=== PATIENT | male | born 1950 | race Caucasian/White ===

== ENCOUNTER 2022-10-20 09:08 | Emergency (ER) | payer MEDICARE, BC ==
--- NOTE | 2022-10-20 09:28 | ED Physician Documentation ---
PD HPI HEENT - Stated complaint Stated Complaint: DIZZY - Chief complaint Chief Complaint: Neuro - History obtained from History obtained from: Patient, Family - History of Present Illness Timing - onset: How many days ago (6) Timing - duration: Days (6) Timing - details: Abrupt onset, Still present, Intermittant (triggered by head/position movement. Improves with lying still. No other symtpoms. Onset when shoveling snow.) Location: Right ear (feeling of decreased hearing/fullness right ear.) Improves: Other (lying still) Worsens: Position (movement of head or leaning over/rolling over.) Associated symptoms: No: Fever, Congestion, Headache, Cough Similar symptoms before: No diagnosis (intermittent vertigo in past; not this severe nor persistent) Review of Systems Constitutional: denies: Fever, Chills Eyes: denies: Loss of vision Ears: reports: Tinnitus/ringing (chronic right ear more.). 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 ), TIA Endocrine/Autoimmune: None - Present Medications Home Medications: Ambulatory Orders Medication Instructions Recorded Confirmed Aspirin EC [Ecotrin] 81 mg PO DAILY 10/20/22 10/20/22 Atorvastatin Calcium [Lipitor] 80 mg PO HS 10/20/22 10/20/22 Cetirizine [ZyrTEC] 10 mg PO DAILY #15 tablet 10/20/22 Fluticasone/Salmeterol [Advair 1 each IH BID 10/20/22 10/20/22 250-50 Diskus] Lansoprazole [Prevacid] 30 mg PO DAILY 10/20/22 10/20/22 Meclizine HCl [Motion Sickness] 25 mg PO Q6H PRN #30 tablet 10/20/22 Montelukast [Singulair] 10 mg PO QPM 10/20/22 10/20/22 Tamsulosin [Flomax] 0.4 mg PO DAILY 10/20/22 10/20/22 buPROPion [Wellbutrin Sr] 0 mg PO BID 10/20/22 10/20/22 - Allergies Allergies/Adverse Reactions: Allergies Allergy/AdvReac Type Severity Reaction Status Date / Time cephalexin [From Keflex] Allergy Rash Verified 10/20/22 09:23 Penicillins Allergy Rash Verified 10/20/22 09:23 PD ED PE NORMAL - Vitals Vital signs reviewed: Yes - General General: Alert and oriented X 3, No acute distress, Well developed/nourished - HEENT HEENT: PERRL, EOMI (with nystagmus noted mildly to right; no vertical nystagmus. 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, No motor deficit, No sensory deficit, Normal speech, Other Results - Vitals Vitals: Vital Signs - 24 hr 10/20/22 10/20/22 09:16 10:33 Temperature 36.0 C L Heart Rate 66 60 Respiratory 16 12 Rate Blood Pressure 206/85 H 168/67 H O2 Saturation 100 100 Oxygen O2 Source Room air - Labs Labs: Laboratory Tests 10/20/22 10/20/22 10/20/22 10:00 10:00 10:00 WBC 7.6 RBC 4.49 L Hgb 13.1 L Hct 41.3 L MCV 92.0 MCH 29.2 MCHC 31.7 L RDW 12.9 Plt Count 316 MPV 8.6 Neut # (Auto) 4.5 Lymph # (Auto) 1.7 [place] # (Auto) 0.7 Eos # (Auto) 0.5 Baso # (Auto) 0.1 Absolute Nucleated RBC 0.00 Nucleated RBC % 0.0 ESR 66 H Sodium 142 Potassium 4.4 Chloride 109 Carbon Dioxide 26 Anion Gap 7.0 BUN 8 Creatinine 0.8 Estimated GFR (MDRD) 95 Glucose 107 H Calcium 8.7 Magnesium 2.3 Total Bilirubin 0.3 AST 18 ALT 15 Alkaline Phosphatase 45 Total Protein 7.8 Albumin 3.7 Globulin 4.1 Albumin/Globulin Ratio 0.9 L Lipase 26 - Rads (name of study) head CT Radiology: Prelim report reviewed (no acute process), See rad report PD Medical Decision Making - ED course Complexity details: reviewed results (No obvious acute abnormalities to my evaluation. Pending radiology report.), re-evaluated patient (feeling improved after valium/meclizine. Able to move/turn head and sit up with just minimal vertigo.), considered differential (Symptom onset while bending over and shoveling with pattern of triggered by movement and better with rest without other symptoms would be suggestive of peripheral vertigo. Can check basic electrolytes. He has had prior cerebral artery bypass so can check a CT to ensure no signs of acute changes.), d/w patient Departure - Departure Disposition: Home, Self Care Clinical Impression: Peripheral vertigo Qualifiers: Laterality: unspecified laterality Qualified Code(s): H81.399 - Other peripheral vertigo, unspecified ear Condition: Stable Record reviewed to determine appropriate education?: Yes Instructions: ED BPV Vertigo Prescriptions: Meclizine HCl [Motion Sickness] 25 mg PO Q6H PRN #30 tablet PRN Reason: Vertigo Cetirizine [ZyrTEC] 10 mg PO DAILY #15 tablet Comments: This sounds like peripheral vertigo involving the inner ear. Sometimes this is just loose debris floating around. Try to avoid quick movements and such. However the persistence of it would be more suggestive of fluid pressure or some inflammation. This would also account for some of the feeling of fullness or decreased hearing. I would suggest cetirizine antihistamine daily for the next week or 2 without consideration. To that add meclizine every 6 hours if needed for vertigo. Recheck with your primary care if not improving well over the next several days and resolved by 4 to 5 days. Return if worsening or new symptoms develop. I sent your prescriptions to your preferred pharmacy. Discharge Date/Time: 10/20/22 11:39
[2022-10-20] MEDS ORDERED: MECLIZINE 12.5 MG TABLET PO STA (09:51)
[2022-10-20] MEDS ORDERED: diazePAM INJ 5 MG/ML SYRINGE IVP STA (09:51)
[2022-10-20 10:08] LABS: BASOPHILS # (AUTO) 0.1 10^3/uL (0.0-0.1); BASOPHILS % (AUTO) 1.2 %; EOSINOPHILS # (AUTO) 0.5 10^3/uL (0.0-0.7); EOSINOPHILS % (AUTO) 6.3 %; HCT - HEMATOCRIT 41.3 % (42.0-52.0); HGB - HEMOGLOBIN 13.1 g/dL (14.0-18.0); LYMPHOCYTES # (AUTO) 1.7 10^3/uL (1.5-3.5); LYMPHOCYTES % (AUTO) 22.9 %; MEAN CORPUSCULAR HEMOGLOBIN 29.2 pg (27.0-31.0); MEAN CORPUSCULAR HGB CONC 31.7 g/dL (32.0-36.0); MEAN PLATELET VOLUME 8.6 fL (7.4-11.4); MONOCYTES # (AUTO) 0.7 10^3/uL (0.0-1.0); MONOCYTES % (AUTO) 9.7 %; NEUTROPHILS # (AUTO) 4.5 10^3/uL (1.5-6.6); NEUTROPHILS % (AUTO) 59.5 %; PLT - PLATELET COUNT 316 10^3/uL (130-450); RED BLOOD COUNT 4.49 10^6/uL (4.70-6.10); RED CELL DISTRIBUTION WIDTH 12.9 % (12.0-15.0); WHITE BLOOD COUNT 7.6 x10^3/uL (4.8-10.8)
[2022-10-20 10:20] LABS: ALBUMIN 3.7 g/dL (3.2-5.5); ALBUMIN/GLOBULIN RATIO 0.9 (1.0-2.2); BILIRUBIN,TOTAL 0.3 mg/dL (0.2-1.0); CALCIUM 8.7 mg/dL (8.5-10.3); CREATININE 0.8 mg/dL (0.6-1.2); MAGNESIUM 2.3 mg/dL (1.7-2.8); POTASSIUM 4.4 mmol/L (3.5-5.0); TOTAL PROTEIN 7.8 g/dL (6.7-8.2)
--- NOTE | 2022-10-20 10:32 | CT Report ---
PROCEDURE: HEAD WO INDICATIONS: dizziness for several days; prior vascular brain TECHNIQUE: Noncontrast 4.5 mm thick angled axial sections acquired from the foramen magnum to the vertex. For r adiation dose reduction, the following was used: automated exposure control, adjustment of mA and/or kV according to patient size. COMPARISON: 05/31/2022 FINDINGS: Image quality: Excellent. CSF spaces: Basal cisterns are patent. No extra-axial fluid collections. Ventricles are normal in size and shape. Brain: No midline shift. No intracranial masses or hemorrhage. Ruiz-white matter interface is norm al. Right frontal lobe infarction can be seen anteriorly and laterally. Skull and face: Right-sided craniotomy changes are seen. Calvarium and visualized facial bones are i ntact, without suspicious lesions. Sinuses: Visualized sinuses and mastoids are clear. IMPRESSION: No judson acute abnormality is seen. Prior right frontal lobe infarction. Prior right craniotomy change. Reviewed by: Yg Morgan MD on 10/20/2022 9:30 AM [facility] Approved by: Yg Morgan MD on 10/20/2022 9:30 AM [facility] Station ID: [id number]
[2022-10-20 10:34] VITALS: BP 168/67
== END 2022-10-20 11:39 | disposition home or self-care (01) ==
LOC: ED 09:08
DX: H81.399 Other peripheral vertigo, unspecified ear (principal)
CPT/HCPCS: 36415; 70450; 80053; 83690; 83735; 85025; 85651; 96374; 99283; 99284; A9270

== ENCOUNTER 2023-08-06 18:40 | Outpatient (CLI) | payer MEDICARE, BC | END 2023-08-06 23:59 | disposition left against medical advice (07) | LOC: EMS 18:40 | DX: R09.89 Other specified symptoms and signs involving the circulatory and respiratory systems (principal) ==